=== PATIENT | female | born 1955 | race Caucasian/White ===

== ENCOUNTER 2016-06-08 16:15 | Inpatient (IN) | payer MEDICARE ==
[~2016-06-08] VITALS: Ht 162.6 cm; Wt 61.7 kg
[2016-06-08] MEDS ORDERED: VITAMIN B-12100 MCG PO (18:17)
[2016-06-08] MEDS ORDERED: VENTOLIN HFA18 GM INH (18:20)
[2016-06-08] MEDS ORDERED: NEURONTIN100 MG PO ×2 (18:22→18:23)
[2016-06-08] MEDS ORDERED: ZOLOFT50 MG PO (18:25)
[2016-06-08] MEDS ORDERED: VIBRAMYCIN100 MG PO (18:26)
[2016-06-08] MEDS ORDERED: CARTIA XT120 MG PO (18:27)
[2016-06-08] MEDS ORDERED: ASMANEX220 MC3 INH (18:28)
[2016-06-08] MEDS ORDERED: PROVENTIL2.5 MG/3 M INH (18:29)
[2016-06-13] MEDS ORDERED: XARELTO15 MG PO (11:21)
[2016-06-13] MEDS ORDERED: TYLENOL500 MG PO (11:22)
[2016-06-13] MEDS ORDERED: MYCOSTATIN100000 UNI PO (11:23)
[2016-06-13] MEDS ORDERED: LINZESS145 MCG PO (11:25)
[2016-06-13] MEDS ORDERED: [UNRECOGNIZED DRUG - CODE] INH (11:40)
[2016-06-13] MEDS ORDERED: XARELTO10 MG PO (11:42)
== END 2016-06-13 13:00 | DRG 190 ==
LOC: IP 16:15
PROVIDERS: ADMIT Family Medicine
PROC: 3E0F7GC Introduction of Other Therapeutic Substance into Respiratory Tract, Via Natural or Artificial Opening (ICD-10-PCS; principal; 2016-06-08)
PROC: B54DZZZ Ultrasonography of Bilateral Lower Extremity Veins (ICD-10-PCS; 2016-06-12)
PROC: 4A09XMZ Measurement of Respiratory Total Activity, External Approach (ICD-10-PCS; 2016-06-13)
DX: J44.1 Chronic obstructive pulmonary disease with (acute) exacerbation (principal); I26.99 Other pulmonary embolism without acute cor pulmonale; B37.0 Candidal stomatitis; F32.9 Major depressive disorder, single episode, unspecified; F41.0 Panic disorder [episodic paroxysmal anxiety]; D64.9 Anemia, unspecified; M79.2 Neuralgia and neuritis, unspecified; R00.0 Tachycardia, unspecified; M65.319 Trigger thumb, unspecified thumb; F42.9 Obsessive-compulsive disorder, unspecified; E53.8 Deficiency of other specified B group vitamins; K21.9 Gastro-esophageal reflux disease without esophagitis; Z87.891 Personal history of nicotine dependence
CPT/HCPCS: J1650; J1956; J2405; Q9967

== ENCOUNTER 2016-07-06 19:10 | Emergency (ER) | payer MEDICARE ==
[~2016-07-06] VITALS: Ht 162.6 cm; Wt 59.0 kg
[~2016-07-06 19:10] MED LIST: ASMANEX220 MC3 INH; CARTIA XT120 MG PO; LINZESS145 MCG PO; MYCOSTATIN100000 UNI PO; NEURONTIN100 MG PO; PROVENTIL2.5 MG/3 M INH; TYLENOL500 MG PO; VENTOLIN HFA18 GM INH; VIBRAMYCIN100 MG PO; VITAMIN B-12100 MCG PO; XARELTO10 MG PO; XARELTO15 MG PO; ZOLOFT50 MG PO; [UNRECOGNIZED DRUG - CODE] INH
[2016-07-06] MEDS ORDERED: SINGULAIR10 MG PO (21:33)
[2016-07-06] MEDS ORDERED: PAXIL20 MG PO (21:33)
[2016-07-06] MEDS ORDERED: ATIVAN0.5 MG PO (21:33)
== END 2016-07-06 21:22 | disposition short-term general hospital (02) ==
LOC: ER 19:10
DX: F41.9 Anxiety disorder, unspecified (principal); R11.0 Nausea; I26.99 Other pulmonary embolism without acute cor pulmonale; F42.9 Obsessive-compulsive disorder, unspecified; J44.9 Chronic obstructive pulmonary disease, unspecified; Z79.899 Other long term (current) drug therapy; Z88.1 Allergy status to other antibiotic agents; Z88.2 Allergy status to sulfonamides; Z88.8 Allergy status to other drugs, medicaments and biological substances
CPT/HCPCS: J2060; J2405